=== PATIENT | male | born 1990 | race Caucasian/White ===

== ENCOUNTER 2018-06-29 03:23 | Emergency (ER) | payer OTHER ==
[2018-06-29 04:11] LABS: PLATELET COUNT 341 10^3/uL (150-400)
[2018-06-29 05:13] VITALS: BP 126/81
--- NOTE | 2018-06-29 05:38 | EDPHY ---
H & P Stated Complaint: chest and scapular pain Time Seen by Provider: 06/29/18 05:18 HPI/ROS: HPI The patient presents with left shoulder pain which has been present chronically after a labral tear and repair in 2005. Pain is become worse over the last few days and feels more pressure like in nature in his left shoulder. He had some nausea with lightheadedness and sensations of anxiety at about 10:00 p.m. Tonight. He decided to go to bed and at midnight he does covered he had left shoulder and scapular pressure sensation with transient tingling of his hand. He has had a similar episode about 2 years ago. The patient has a history of anxiety and 3 days ago went off of his Lamictal upon the request of his therapist.. REVIEW OF SYSTEMS 10 systems were reviewed and negative with the exception of the elements mentioned in the history of present illness. PMHx: Bilateral shoulder operations, anxiety Soc Hx: Recently moved here from [place], his therapist is in [place], he has no tobacco use history FHx: Grandfather with cardiac arrest at age 70 PHYSICAL General Appearance: Alert, no distress Eyes: Pupils equal and round no pallor or injection ENT, Mouth: Mucous membranes moist Respiratory: There are no retractions, lungs are clear to auscultation Cardiovascular: Regular rate and rhythm Gastrointestinal: Abdomen is soft and non-tender, no masses, bowel sounds normal Neurological: A&O, moves all extremities Skin: Warm and dry, no rashes Musculoskeletal: Neck is supple non tender Extremities: symmetrical, full range of motion Psychiatric: Patient is oriented X 3, there is no agitation Source: Patient Exam Limitations: No limitations - Personal History Current Tetanus/Diphtheria Vaccine: Yes Current Tetanus Diphtheria and Acellular Pertussis (TDAP): Yes - Medical/Surgical History Hx Asthma: No Hx Chronic Respiratory Disease: No Hx Diabetes: No Hx Cardiac Disease: No Hx Renal Disease: No Hx Cirrhosis: No Hx Alcoholism: No Hx HIV/AIDS: No Hx Splenectomy or Spleen Trauma: No Other PMH: bilat shldr surgery. knee surgery. depression - Social History Smoking Status: Never smoked Constitutional: Initial Vital Signs Temperature (C) 36.8 C 06/29/18 03:30 Heart Rate 102 H 06/29/18 03:30 Respiratory Rate 18 06/29/18 03:30 Blood Pressure 164/107 H 06/29/18 03:30 O2 Sat (%) 98 06/29/18 03:30 O2 Delivery Mode Room Air Allergies/Adverse Reactions: No Known Allergies Allergy (Unverified 06/29/18 03:41) Home Medications: Medication Instructions Recorded Adderall 10 MG (*) 06/29/18 Lexapro 06/29/18 VYVANSE 06/29/18 buPROPion SR [Wellbutrin 150mg SR 150 mg PO 06/29/18 (*)] Medical Decision Making - Diagnostics EKG Interpretation: EKG: Complete interpretation has been separately recorded in the [facility] archive. Summary impression: Normal sinus rhythm Differential Diagnosis: 28-year-old male with known history of anxiety on multiple medications, also shoulder operations presents with left shoulder scapular pain with paresthesias of his hand present for the last several hours tonight. This is in association with increasing anxiety, after coming off his Lamictal 3 days ago. The patient is worried that the cumulative effect of his stress and anxiety will result in an [facility]. Here he had basic laboratory testing which was unremarkable. EKG was normal. Paresthesias improved in his hand. I feel he is likely suffering from an anxiety attack and I have explained this to him. Coming off of his Lamictal may be playing a role. I am not concerned about ACS or any other serious cardiac pathology. He does not have a primary care doctor hearing he would benefit from this. I have encouraged him to follow up with primary care and return if worse in any way. - Data Points Laboratory Results: Laboratory Results 06/29/18 03:50 06/29/18 03:50 06/29/18 06/29/18 06/29/18 04:00 03:50 03:50 WBC 7.99 10^3/uL 10^3/uL (3.80-9.50) RBC 6.01 10^6/uL 10^6/uL (4.40-6.38) Hgb 15.2 g/dL g/dL (13.7-17.5) Hct 45.5 % % (40.0-51.0) MCV 75.7 fL L fL (81.5-99.8) MCH 25.3 pg L pg (27.9-34.1) MCHC 33.4 g/dL g/dL (32.4-36.7) RDW 12.9 % % (11.5-15.2) Plt Count 341 10^3/uL 10^3/uL (150-400) MPV 9.0 fL fL (8.7-11.7) Neut % (Auto) 62.2 % % (39.3-74.2) Lymph % (Auto) 28.0 % % (15.0-45.0) Grady % (Auto) 7.6 % % (4.5-13.0) Eos % (Auto) 1.4 % % (0.6-7.6) Baso % (Auto) 0.4 % % (0.3-1.7) Nucleat RBC Rel Count 0.0 % % (0.0-0.2) Absolute Neuts (auto) 4.97 10^3/uL 10^3/uL (1.70-6.50) Absolute Lymphs (auto) 2.24 10^3/uL 10^3/uL (1.00-3.00) Absolute Monos (auto) 0.61 10^3/uL 10^3/uL (0.30-0.80) Absolute Eos (auto) 0.11 10^3/uL 10^3/uL (0.03-0.40) Absolute Basos (auto) 0.03 10^3/uL 10^3/uL (0.02-0.10) Absolute Nucleated RBC 0.00 10^3/uL 10^3/uL (0-0.01) Immature Gran % 0.4 % % (0.0-1.1) Immature Gran # 0.03 10^3/uL 10^3/uL (0.00-0.10) Sodium 140 mEq/L mEq/L (135-145) Potassium 3.9 mEq/L mEq/L (3.3-5.0) Chloride 102 mEq/L mEq/L (97-110) Carbon Dioxide 25 mEq/l mEq/l (22-31) Anion Gap 13 mEq/L mEq/L (6-14) BUN 12 mg/dL mg/dL (7-23) Creatinine 1.0 mg/dL mg/dL (0.7-1.3) Estimated GFR > 60 Glucose 91 mg/dL mg/dL (70-100) Calcium 9.9 mg/dL mg/dL (8.5-10.4) POC Troponin I 0.01 ng/mL ng/mL (0.00-0.08) Point of Care Test Results: Chemistry 06/29/18 04:00 POC Troponin I 0.01 ng/mL ng/mL (0.00-0.08) Departure - Departure Disposition: Home, Routine, Self-Care Clinical Impression: Arm paresthesia, left Left shoulder pain Qualifiers: Chronicity: acute Qualified Code(s): M25.512 - Pain in left shoulder Condition: Good Instructions: Shoulder Pain (ED) Referrals: Rodney Kim DO [Doctor of Osteopathy] - As per Instructions [facility],. [Clinic] - As per Instructions
--- NOTE | 2018-06-30 04:05 | CPEKG ---
Test Reason : OPEN Blood Pressure : / mmHG Vent. Rate : 086 BPM Atrial Rate : 086 BPM P-R Int : 163 ms QRS Dur : 087 ms QT Int : 346 ms P-R-T Axes : 034 044 035 degrees QTc Int : 414 ms Sinus rhythm Confirmed by Alva Lujan ([id number]) on 06/30/2018 4:05:07 AM Referred By: Confirmed By:Alva Lujan
== END 2018-06-29 05:48 | disposition home or self-care (01) ==
DX: R20.2 Paresthesia of skin (principal); M25.511 Pain in right shoulder; F41.9 Anxiety disorder, unspecified
CPT/HCPCS: 84484-PO